=== PATIENT | male | born 1955 | race Caucasian/White ===

== ENCOUNTER → 2017-04-28 | Outpatient (CLI) | payer OTHER ==
[~2017-04-28] MED LIST: ASPI-586 PO; HYDR-3876 PO; LEVO500T2 PO; METO-272 PO; PRAV20TA3 PO; TAMS0.4C98 PO
--- NOTE | 2017-04-28 18:07 | Diagnostic Imaging Report ---
EXAMINATION: [facility]. INDICATION: Left ureteric stone. FINDINGS: There is an 8 mm calcification in the left side of the pelvis near the distal left ureter course which could be a stone. No flank stones. Bilateral pelvic phleboliths are seen. IMPRESSION: Question of a distal 8 mm left ureteric stone. Dictated by: Dictated on workstation # [id number]
== END ==
LOC: RAD 14:43
PROVIDERS: ATTEND Urology
DX: N20.1 Calculus of ureter (principal)
CPT/HCPCS: 74000

== ENCOUNTER → 2017-04-28 | Outpatient (CLI) | payer OTHER | LOC: PREOP 05:34 | PROVIDERS: ATTEND Urology | DX: Z01.818 Encounter for other preprocedural examination (principal); N20.1 Calculus of ureter ==

== ENCOUNTER 2017-04-29 07:54 | Day surgery (SDC) | payer OTHER ==
[~2017-04-29] VITALS: Ht 172.7 cm; Wt 87.1 kg
[2017-04-29] MEDS ORDERED: LACTATED RINGERS 1,000 ML IV PRN (08:40)
[2017-04-29] MEDS ORDERED: ONDANSETRON 4 MG/2 ML (SDV) Z0FRAN IV ONE (08:45)
[2017-04-29] MEDS ORDERED: FAMOTIDINE 20MG/2ML IV (PEPCID) IV ONE (08:45)
[2017-04-29] MEDS ORDERED: CATHETER FLUSH 10 ML SYR IV PRN (09:15)
[2017-04-29] MEDS ORDERED: cefTRIAXone 1 GM/NS 50 ML IVPB IV ONE ×2 (09:15)
--- NOTE | 2017-04-29 09:27 | Diagnostic Imaging Report ---
INDICATION: Nephrolithiasis. KUB at 9:34 AM. There are several calcified phleboliths in the pelvis. Ureteral calculus cannot excluded amongst the phleboliths. There are no calculi seen over the kidneys. Bowel gas pattern is normal. IMPRESSION: Pelvic calcifications most likely phleboliths. A ureteral calculus cannot be entirely excluded. Dictated by: Dictated on workstation # [id number]
[2017-04-29] MEDS ORDERED: ATRACURIUM 50 MG/5 ML (TRACRIUM) IV ONE (10:23)
--- NOTE | 2017-04-29 10:26 | Progress Note-Pre Operative ---
Pre-Operative Progress Note H&P Reviewed The H&P was reviewed, patient examined and no changes noted. Date Seen by Provider: Apr 29, 2017 Time Seen by Provider: 10:25 Date H&P Reviewed: Apr 29, 2017 Time H&P Reviewed: 10:25 Pre-Operative Diagnosis: LT DISTAL URETERAL STONES NARGIS OGLESBY MD Apr 29, 2017 10:26 am
--- NOTE | 2017-04-29 10:26 | Progress Note-Post Operative ---
Post-Operative Progess Note Surgeon (s)/Special Assets Officer (s) Surgeon NARGIS OGLESBY MD Special Assets Officer: N/A Pre-Operative Diagnosis LT DISTAL URETERAL STONES Post-Operative Diagnosis SAME AND MEATAL STENOSIS Procedure & Operative Findings Date of Procedure 04/29/17 Procedure Performed/Findings CYSTO, ATTEMPTED LT URETEROSCOPY, ATTEMPTED STONE MANIPULATION, ATTEMPTED STENT , AND RETROGRADE UROGRAM FINDINGS: MEATAL STENOSIS, PROSTATE ENLARGEMENT WITH MEDIAN BAR AND DISPLACED URETERS UP AND LATERALLY WITH FISH HOOK DEFORMITY, AND IMPACTED STONE(S) Anesthesia Type GENERAL Estimated Blood Loss Estimated blood loss (mL): N/A Specimens/Packing Specimens Removed N/A Packing: N/A NARGIS OGLESBY MD Apr 29, 2017 10:26 am
--- NOTE | 2017-04-29 10:27 | Discharge Inst-Urology ---
Discharge Inst-Urology Discharge Medications New, Converted, or Re-newed RX: RX on Chart Patient Instructions/Follow Up Plan Please make appointment to been seen in office in 2 weeks. Increase oral fluids for 48 hours and then as needed. Diet and Activity as tolerated. If questions or concerns contact your physician Or seek help at emergency department. NARGIS OGLESBY MD Apr 29, 2017 10:27 am
[2017-04-29 10:36] VITALS: BP 133/83
[2017-04-29] MEDS ORDERED: SEVOFLURANE (ULTANE) 15 ML INHAL SOLN ONE ×4 (10:40→11:47)
[2017-04-29] MEDS ORDERED: LACTATED RINGERS 1,000 ML IV ONE (10:40)
[2017-04-29] MEDS ORDERED: MIDAZOLAM 2 MG/2 ML (VERSED) VIAL ONE (10:40)
[2017-04-29] MEDS ORDERED: proPOfol 200 MG/20 ML (DIPRIVAN) VIAL IV ONE (10:40)
[2017-04-29] MEDS ORDERED: fentaNYL INJECTION 100 MCG/2 ML AMP ONE (10:40)
[2017-04-29] MEDS ORDERED: DEXAMETHASONE PF 10 MG/ML (DECADRON) VIAL ONE (10:40)
[2017-04-29] MEDS ORDERED: LIDOCAINE PF 2% 5 ML (XYLOCAINE) VIAL ONE (10:40)
[2017-04-29] MEDS ORDERED: HURRICAINE EXT TUBE (BENZOCAINE) ONE (10:40)
[2017-04-29] MEDS ORDERED: TAMS0.4C98 PO (10:43)
[2017-04-29] MEDS ORDERED: PRAV20TA3 PO (10:43)
[2017-04-29] MEDS ORDERED: ASPI-586 PO (10:43)
[2017-04-29] MEDS ORDERED: METO-272 PO (10:43)
[2017-04-29] MEDS ORDERED: ESMOLOL 100 MG/10 ML (BREVIBLOC) VIAL ONE (11:16)
[2017-04-29] MEDS ORDERED: NEOSTIGMINE (BLOXIVERZ ) 1 MG/1ML 10 ML VIAL ONE (11:47)
[2017-04-29] MEDS ORDERED: GLYCOPYRROLATE 0.2 MG/ML (ROBINUL) 2 ML VIAL ONE (11:47)
[2017-04-29] MEDS ORDERED: morphine INJ 10 MG/ML 1ML (SYR OR VIAL) IVP PRN (12:15)
[2017-04-29] MEDS ORDERED: HYDR-3876 PO (12:23)
[2017-04-29] MEDS ORDERED: LEVO500T2 PO (12:23)
[2017-04-29 13:05] VITALS: BP 148/94
[2017-04-29 13:10] VITALS: BP 132/90
[2017-04-29 13:35] VITALS: BP 132/90
[2017-04-29 13:40] VITALS: BP 132/90
--- NOTE | 2017-04-29 16:10 | OPERATIVE REPORT ---
DATE OF SERVICE: 04/29/2017 PREOPERATIVE DIAGNOSIS: Left distal ureteral stones. POSTOPERATIVE DIAGNOSES: 1. Left distal ureteral stones. 2. Meatal stenosis. 3. Benign prostatic hypertrophy. OPERATIONS PERFORMED: Cystoscopy, attempted left ureteroscopy, attempted stone manipulation, attempted stent and retrograde urogram. SURGEON: Vijay Oglesby MD FINDINGS: Meatal stenosis, enlarged prostate with median bar and displacement of the ureters up and laterally with fishhook deformity and impacted stones. ANESTHESIA: General. COMPLICATIONS: None. DESCRIPTION OF PROCEDURE: Under satisfactory general anesthesia, the patient in lithotomy position, genitalia were prepped and draped in the usual sterile fashion. A 23-[place] cystoscope was introduced and meatal stenosis was found, which responded to the scope. Anterior urethra was normal. The prostate revealed enlarged lateral lobe and a median bar projection, which caused the ureteral orifices to be displaced upward and laterally. No foreign body, bladder tumor or stone visualized. Trabeculations were present. Cystoscopy confirmed in antegrade fashion. There was very sluggish efflux on the left side. Using foreoblique lens, I could not dilate adequately the left ureteral orifice intramural portion because of the direction of the opening and ureter. I attempted to pass a ureteroscope semi-rigid 6.9-[place], unable to because of the same reason. I attempted to pass a stent and was unable to bypass the impacted stones, which have been there at least 3 weeks according to the patient. I attempted to pass a guidewire including a gliding Glidewire, which was unsuccessful again to bypass the stones. I injected contrast to confirm the integrity of the ureter and no extravasation and there were none. There was descent emptying of the ureter and efflux into the bladder. I discontinued further attempt. I emptied the bladder, removed the cystoscope. The patient tolerated the procedure and anesthesia well and was sent to recovery room in stable condition. PLAN: We will give the patient and his options. The first option, which in my opinion will be the best, refer to [facility] for flexible ureteroscopy and laser or await the ESWL here in 2 weeks. I explained to them that the first option carries a higher success rate especially for impacted stones in the distal ureter position. They lean toward the [facility]. We will contact [facility] and see if they can see the patient and hopefully do the surgery next week because of distance and traveling. Job ID: [id number] DocumentID: [id number] Dictated Date: 04/29/2017 12:19:33 Machine Hoop Maker Date: 04/29/2017 13:01:01 Dictated By: VIJAY OGLESBY MD MTDD
== END 2017-04-29 13:40 | disposition home or self-care (01) ==
LOC: SDC 07:54
PROVIDERS: ATTEND Urology
DX: N20.1 Calculus of ureter (principal); N35.9 Urethral stricture, unspecified; N40.0 Benign prostatic hyperplasia without lower urinary tract symptoms; I10 Essential (primary) hypertension; G47.33 Obstructive sleep apnea (adult) (pediatric); Z79.899 Other long term (current) drug therapy
CPT/HCPCS: 74000; 85002; 87081

== ENCOUNTER 2017-05-10 05:38 | Outpatient (CLI) | payer OTHER ==
[~2017-05-10] VITALS: Ht 172.7 cm; Wt 87.1 kg
== END 2017-05-10 14:25 ==
LOC: PREOP 05:38
PROVIDERS: ATTEND Urology
DX: Z01.818 Encounter for other preprocedural examination (principal); N20.1 Calculus of ureter

== ENCOUNTER 2017-05-12 06:05 | Day surgery (SDC) | payer OTHER ==
[~2017-05-12] VITALS: Ht 172.7 cm; Wt 87.5 kg
[2017-05-12] MEDS ORDERED: cefTRIAXone 1 GM (ROCEPHIN) VIAL ONE (06:11)
[2017-05-12] MEDS ORDERED: NS (IVPB) 50 ML ONE (06:11)
[2017-05-12 06:45] VITALS: BP 140/96
[2017-05-12] MEDS ORDERED: cefTRIAXone 1 GM/NS 50 ML IVPB IV ONE ×2 (06:45)
[2017-05-12] MEDS ORDERED: LACTATED RINGERS 1,000 ML IV PRN (06:45)
[2017-05-12] MEDS ORDERED: CATHETER FLUSH 10 ML SYR IV PRN (06:45)
[2017-05-12] MEDS ORDERED: FAMOTIDINE 20MG/2ML IV (PEPCID) IV ONE (06:45)
--- NOTE | 2017-05-12 06:55 | Diagnostic Imaging Report ---
INDICATION: Lithotripsy left kidney. Comparison with 04/29/2017. Findings: No calculi are seen overlying the kidneys. No calcifications are seen along the path of the ureters. Multiple round calcifications along the periphery of the pelvis again noted consistent with phleboliths. IMPRESSION: No definite changes have occurred that would indicate renal or ureteral calculi. Dictated by: Dictated on workstation # [id number]
[2017-05-12] MEDS ORDERED: SEVOFLURANE (ULTANE) 15 ML INHAL SOLN ONE ×4 (06:59→07:59)
[2017-05-12] MEDS ORDERED: proPOfol 200 MG/20 ML (DIPRIVAN) VIAL IV ONE (06:59)
[2017-05-12] MEDS ORDERED: fentaNYL INJECTION 100 MCG/2 ML AMP ONE (06:59)
[2017-05-12] MEDS ORDERED: LACTATED RINGERS 1,000 ML IV ONE (06:59)
[2017-05-12] MEDS ORDERED: LIDOCAINE PF 2% 5 ML (XYLOCAINE) VIAL ONE (06:59)
[2017-05-12] MEDS ORDERED: MIDAZOLAM 2 MG/2 ML (VERSED) VIAL ONE (07:00)
--- NOTE | 2017-05-12 07:01 | Progress Note-Pre Operative ---
Pre-Operative Progress Note H&P Reviewed The H&P was reviewed, patient examined and no changes noted. Date Seen by Provider: May 12, 2017 Time Seen by Provider: 07:01 Date H&P Reviewed: May 12, 2017 Time H&P Reviewed: 07:01 Pre-Operative Diagnosis: LT DISTAL URETERAL STONE NARGIS OGLESBY MD May 12, 2017 7:01 am
[2017-05-12] MEDS ORDERED: ONDANSETRON 4 MG/2 ML (SDV) Z0FRAN ONE (07:21)
[2017-05-12] MEDS ORDERED: FUROSEMIDE 40 MG/4 ML INJ (LASIX) ONE (07:21)
--- NOTE | 2017-05-12 07:43 | Progress Note-Post Operative ---
Post-Operative Progess Note Surgeon (s)/C++ Quant Developer (s) Surgeon NARGIS OGLESBY MD C++ Quant Developer: N/A Pre-Operative Diagnosis LT DISTAL URETERAL STONE Post-Operative Diagnosis SAME Procedure & Operative Findings Date of Procedure 05/12/17 Procedure Performed/Findings LT ESWL LT DISTAL URETERAL STONE Anesthesia Type GENERAL Estimated Blood Loss Estimated blood loss (mL): N/A Specimens/Packing Specimens Removed N/A Packing: N/A NARGIS OGLESBY MD May 12, 2017 7:43 am
--- NOTE | 2017-05-12 07:44 | Discharge Inst-Urology ---
Discharge Inst-Urology Discharge Medications New, Converted, or Re-newed RX: RX on Chart Patient Instructions/Follow Up Plan Please make appointment to been seen in office this Wednesday, K[facility] prior to it [facility] on way home Post ESWL instructions Increase oral fluids for 48 hours and then as needed. Diet and Activity as tolerated. If questions or concerns contact your physician Or seek help at emergency department. NARGIS OGLESBY MD May 12, 2017 7:44 am
[2017-05-12 08:55] VITALS: BP 113/84
[2017-05-12] MEDS ORDERED: HYDR-3875 PO (09:15)
[2017-05-12] MEDS ORDERED: NITR-68 PO (09:15)
[2017-05-12] MEDS ORDERED: TAMS0.4C98 PO (09:15)
[2017-05-12 09:30] VITALS: BP 123/85
[2017-05-12 10:00] VITALS: BP 121/93
[2017-05-12 10:15] VITALS: BP 121/93
--- NOTE | 2017-05-12 10:36 | Diagnostic Imaging Report ---
EXAMINATION: KUB. INDICATION: Lithotripsy. COMPARISON: 05/12/2017. FINDINGS: There are multiple phleboliths seen in the pelvis. Two calcifications in the left side of the pelvis are close to the expected area of the UVJ. These could be phleboliths or at least one of them could potentially be a stone in the distal left ureter. No flank calcifications seen. Surgical clip in the upper right abdomen is noted. There is a metallic coil also seen projecting over the lower left side of the pelvis. IMPRESSION: Multiple calcifications in the pelvis mostly phleboliths, of which two calcifications are close to the area of the left UVJ and could potentially correlate with stones. Dictated by: Dictated on workstation # [id number]
--- NOTE | 2017-05-12 12:56 | OPERATIVE REPORT ---
DATE OF SERVICE: 05/12/2017 PREOPERATIVE DIAGNOSES: 1. Left ureteral stone. 2. Distal ureteral stone. POSTOPERATIVE DIAGNOSES: 1. Left ureteral stone. 2. Distal ureteral stone. OPERATION PERFORMED: Left ESWL. SURGEON: Vijay Oglesby MD ANESTHESIA: General. COMPLICATIONS: None. PROCEDURE IN DETAIL: Under satisfactory general anesthesia with the patient in supine position on ESWL table, the left distal ureteral stone was localized. Shocks were delivered at K[facility] 6. Total of 3000 shocks looked to have fragmented the stone very well. The patient received 30 mg of Toradol and 40 mg of Lasix at the end of the procedure. He tolerated the procedure and anesthesia well, was sent to recovery room in stable condition. PLAN: We will see him back on Wednesday and get a [facility] and if everything looks fine, we will cancel the appointment with you on Wednesday. If not, we will have him keep the appointment on Wednesday for a flexible ureteroscopy. This plan was fully explained to the patient and his prior to surgery with no guarantee of successful ESWL today and they elected this route. Job ID: [id number] DocumentID: [id number] Dictated Date: 05/12/2017 07:50:02 Clinical Program Consultant Date: 05/12/2017 10:40:54 Dictated By: VIJAY OGLESBY MD [facility]
== END 2017-05-12 10:15 | disposition home or self-care (01) ==
LOC: SDC 06:05
PROVIDERS: ATTEND Urology
DX: N20.1 Calculus of ureter (principal); Z11.2 Encounter for screening for other bacterial diseases; I10 Essential (primary) hypertension
CPT/HCPCS: 74000; 87081

== ENCOUNTER → 2017-05-14 | Outpatient (CLI) | payer OTHER ==
[~2017-05-14] MED LIST changes: +HYDR-3875 PO; +NITR-68 PO
--- NOTE | 2017-05-14 11:51 | Diagnostic Imaging Report ---
EXAMINATION: Supine view of the abdomen. INDICATION: Followup of the ureteric stone. COMPARISON: 05/12/2017. FINDINGS: There is a 7 mm calcification in the left side of the pelvis seen now in the more medially position which may suggest progression of distal left ureteric stone, now at the UV junction level. Other pelvic calcifications are probably phleboliths. There are small metallic springs seen probably related to a hernia mesh repair in the left inguinal region. Surgical clips in the upper right abdomen also seen. In the upper abdomen no renal stones are evident on this radiograph. IMPRESSION: 7 mm left pelvic calcification appears now more medial compared to the prior study, may relate to left UVJ stone. Dictated by: Dictated on workstation # [id number]
== END ==
LOC: RAD 10:39
PROVIDERS: ATTEND Urology
DX: N20.1 Calculus of ureter (principal)
CPT/HCPCS: 74000